=== PATIENT | male | born 2005 | race African-American/Black ===

== ENCOUNTER 2024-03-28 21:38 | Emergency (ER) | payer OTHER ==
[~2024-03-28] VITALS: Ht 177.8 cm; Wt 105.1 kg
[2024-03-28 23:20] LABS: Trichomonas vaginalis (AMP) NOT DETECTED (NEGATIVE)
[2024-03-28 23:44] LABS: GC DNA AMPLIFICATION NEGATIVE (NEGATIVE)
[2024-03-28] MEDS ORDERED: DOXYCYCLINE HYCLATE 100MG TABLET PO ONE (23:55)
[2024-03-29] MEDS: cefTRIAXone 500MG VIAL IM ONE (00:10)
[2024-03-29] MEDS ORDERED: DOXY100T PO (00:10)
[2024-03-29] MEDS: metroNIDAZOLE (FLAGYL) 500MG TABLET PO ONE (00:19)
[2024-03-29] MEDS: DOXYCYCLINE HYCLATE 100MG TABLET PO ONE (00:21)
[2024-03-29] MEDS: LIDOCAINE 1% SDV 5ML VIAL DILUENT ONE (00:23)
[2024-03-29 00:32] VITALS: BP 119/78; TEMP 97.5; O2SAT 99
== END 2024-03-29 00:35 | disposition home or self-care (01) ==
LOC: M ED 21:38
DX: Z20.2 Contact with and (suspected) exposure to infections with a predominantly sexual mode of transmission (principal)
CPT/HCPCS: 87661; 87810; 87850; 99284; J0696

== ENCOUNTER 2025-04-25 18:57 | Emergency (ER) | payer OTHER ==
[~2025-04-25] VITALS: Ht 175.3 cm; Wt 106.6 kg
[~2025-04-25 18:57] MED LIST: DOXY100T PO
[2025-04-25] MEDS ORDERED: NAPR-837 PO (21:32)
[2025-04-25] MEDS: NAPROXEN 250 MG TAB PO ONE (21:50)
[2025-04-25 22:03] VITALS: BP 144/75; TEMP 97.2; O2SAT 99
== END 2025-04-25 22:10 | disposition home or self-care (01) ==
LOC: M ED 18:57 → EDBD 18:57 → M ED 22:10
DX: S89.92XA Unspecified injury of left lower leg, initial encounter (principal); X50.0XXA Overexertion from strenuous movement or load, initial encounter; Y92.9 Unspecified place or not applicable; Y93.9 Activity, unspecified; Y99.9 Unspecified external cause status